=== PATIENT | male | born 1935 | race Caucasian/White ===

== ENCOUNTER 2017-10-20 12:44 | Outpatient (CLI) | payer MEDICARE, BC ==
--- NOTE | 2017-10-20 14:41 | CT ---
CTA CHEST WITH CONTRAST: History: Atrial fibrillation. Technique: Multiple contiguous axial images were obtained in a limited CTA of the chest/heart with co ntrast. 3D sagittal and coronal MIP reformats were performed. FINDINGS: Contrast is predominately in the pulmonary veins and left side of the heart. There are calcifications in the aortic valve, mitral valve, coronary arteries, and aorta. No hilar or mediastinal lymphadenop athy are seen. No filling defects are seen within the pulmonary arteries or veins. The patient is status post sterno av. Biventricular cardiomegaly is present. No suspicious pulmonary nodule was seen. There was a calcification adjacent to the right hilar region . Degenerative changes are seen in the spine. The visualized subdiaphragmatic structures are unremark able. IMPRESSION: No significant intrathoracic abnormality. POS: KADIE
[2017-10-20] MEDS ORDERED: Iopamidol 370 76% 100 ML VIAL ONE (14:48)
== END 2017-10-20 12:45 | disposition home or self-care (01) ==
LOC: CT 12:44
PROVIDERS: ATTEND Internal Medicine Cardiovascular Disease
DX: I48.1 Persistent atrial fibrillation (principal)
CPT/HCPCS: 71275; 82565

== ENCOUNTER 2018-03-29 12:34 | Outpatient (CLI) | payer MEDICARE, BC ==
--- NOTE | 2018-03-29 14:56 | CT ---
NONCONTRAST CT LUMBAR SPINE: DATE: 03/29/18. HISTORY: Spondylolisthesis, low back pain. No history of injury. History of prior surgery. COMPARISON: MRI lumbar spine on 03/23/15. FINDINGS: There is a large hypodense cystic-appearing structure involving the right kidney incompletely imaged or assessed with small subcentimeter hypodense lesion medial aspect mid portion of the left kidney ag ain unable to be further localized. Increased density subcentimeter foci are also seen within the vi sualized mid portion and superior pole right kidney which cannot be further assessed on this exam. C ystic hypodense lesions are partially imaged on a MRI exam. Vascular calcifications are seen in the visualized abdominal aorta and iliac artery. Abdominal aorta is tortuous but incompletely assessed. There is a questionable focal area of aneurysmal dilatation, but this cannot be adequately evaluated on this exam and may be related to tortuosity of the abdomin al aorta. The vertebral body heights are within normal limits. No fracture or subluxation is seen. Multilevel degenerative changes are seen. Postsurgical changes are seen involving the lower lumbar spine. T12-L1 level: there is minimal disk-osteophyte complex. The central spinal canal and neural foramin a are patent. L1-2 level: There is loss of intervertebral disk height with vacuum phenomenon in the intervertebral disk. There is mild broad-based disk-osteophyte complex with facet hypertrophic changes. There is mild narrowing of the central spinal canal. There is mild left-sided neural foraminal narrowing. Th e right neural foramen is patent. L2-3 level: There is loss of intervertebral disk height with vacuum phenomenon in the intervertebral disk. A broad-based disk-osteophyte complex is present with facet hypertrophic change and mild liga mentous thickening. Findings result in mild to moderate narrowing of the central spinal canal and th e degree of central canal narrowing does appear greater than on the prior MRI exam. Mild bilateral n eural foraminal narrowing is present. L3-4 level: There is a mild broad-based disk-osteophyte complex with facet hypertrophic change and l igamentous thickening. Findings result in moderate to severe narrowing of the central spinal canal. Mild to moderate left and mild left-sided neural foraminal narrowing are present. L4-5 level: There is loss of intervertebral disk height with end plate degenerative changes and vacu um phenomenon seen in the intervertebral disks. There is a broad-based disk-osteophyte complex prese nt at this level. There is severe bilateral neural foraminal narrowing with mild narrowing of the ce ntral spinal canal. Laminectomy defect is present. L5-S1 level: There is minimal grade I anterolisthesis of L5 on S1. There is loss of intervertebral disk height with vacuum phenomenon seen in the intervertebral disk. Facet hypertrophic changes are n oted at this level. There is a broad-based disk-osteophyte complex. Laminectomy defect is seen post eriorly. There is mild narrowing of the central spinal canal with moderate bilateral neural foramina l narrowing. IMPRESSION: 1. Multilevel degenerative changes seen throughout the lumbar spine as described above. There is amita dence of severe bilateral neural foraminal narrowing at the L4-5 level. 2. Grade I anterolisthesis of L5 on S1 related to the facet hypertrophic changes. 3. Interval laminectomy defects involving the lower lumbar spine compared to the prior study. 4. Subcutaneous edema posteriorly. 5. Large right renal cystic lesion with a smaller left renal cystic lesion and hyperdense subcentime ter lesions involving the right kidney. These lesions cannot be further characterized on this exam. CT abdomen and pelvis with and without IV contrast following renal mass protocol is recommended for further evaluation. 6. Vascular calcifications. There is tortuosity of the thoracic aorta. However, there is questiona ble aneurysmal dilatation of the proximal abdominal aorta, but this cannot be adequately assessed on this exam. This could also be evaluated on a followup CT scan examination. 7. Left total hip prosthesis. POS: KADIE
--- NOTE | 2018-03-29 14:59 | RAD ---
LUMBAR SPINE THREE VIEWS: History: Spondylolisthesis. Comparison: 03-12-15 Correlation: CT lumbar spine 03-29-18. FINDINGS: Lateral neutral, lateral flexion, and extension views lumbar spine demonstrate five lumbar type verte bral bodies. In the neutral position there is 2.4 mm of anterolisthesis of L4 upon L5. Upon extension , there is 3.5 mm anterolisthesis of L4 upon L5. Upon flexion there is 6 mm of anterolisthesis of L4 upon L5. In the neutral position, there is 4.4 mm anterolisthesis of L5 upon S1. Upon extension there is 3.4 m m anterolisthesis L5 upon S1. Upon flexion there is 7 mm anterolisthesis of L5 upon S1. IMPRESSION: Spondylolisthesis as described above. There is motion upon flexion and extension. POS: KADIE
== END 2018-03-29 12:35 | disposition home or self-care (01) ==
LOC: RAD 12:34
PROVIDERS: ATTEND Specialist
DX: M43.17 Spondylolisthesis, lumbosacral region (principal); M99.83 Other biomechanical lesions of lumbar region; M47.896 Other spondylosis, lumbar region; R60.0 Localized edema; N28.9 Disorder of kidney and ureter, unspecified; I70.0 Atherosclerosis of aorta; I77.1 Stricture of artery; Z96.642 Presence of left artificial hip joint
CPT/HCPCS: 72100; 72110; 72131